=== PATIENT | female | born 1960 | race Caucasian/White ===

== ENCOUNTER → 2017-12-06 | Outpatient (CLI) | payer BC ==
--- NOTE | 2017-12-10 08:32 | RADIOLOGY IMAGING REPORT ---
FACILITY: [facility] PATIENT NAME: LYNNETTE KHAN : [id number] MR: [id number] V: [id number] EXAM DATE: ORDERING PHYSICIAN: SHELIA VICTOR TECHNOLOGIST: Geneva Carnes PROCEDURE:BILATERAL DIGITAL SCREENING MAMMOGRAM WITH CAD ASSISTED INTERPRETATION & 3D TOMOSYNTHESIS COMPARISON:Prior mammograms 09/07/15, 01/19/14, 01/15/14, 09/06/11. INDICATIONS:SCREENING FINDINGS: Mildly heterogeneous fibroglandular tissue is seen throughout the breasts. The parenchymal pattern has remained stable allowing for difference in mammographic technique & patient positioning. There is no evidence of malignant appearing mass, malignant appearing calcifications or other secondary sign of malignancy in either breast. DIAGNOSTIC CATEGORY 1--NEGATIVE. RECOMMENDATIONS: ROUTINE MAMMOGRAM AND CLINICAL EVALUATION. IMPRESSION: BIRADS 1: Negative. No significant abnormality is seen. Dictated by: Rasheeda Pimentel M.D. on 12/09/2017 at 15:12 Transcribed by: JONN on 12/09/2017 at 15:31 Approved by: Rasheeda Pimentel M.D. on 12/10/2017 at 8:32 [facility]
== END ==
LOC: MAMO 01:02
PROVIDERS: ATTEND Obstetrics & Gynecology
DX: Z12.31 Encounter for screening mammogram for malignant neoplasm of breast (principal)
CPT/HCPCS: 77063; 77067

== ENCOUNTER → 2019-02-17 | Outpatient (CLI) | payer BC ==
--- NOTE | 2019-02-17 15:16 | RADIOLOGY IMAGING REPORT ---
FACILITY: PATIENT NAME: LYNNETTE KHAN : [id number] MR: [id number] V: [id number] EXAM DATE: ORDERING PHYSICIAN: ANIYA CHAND TECHNOLOGIST: Desi Harper PROCEDURE: BILATERAL DIGITAL SCREENING MAMMOGRAM WITH CAD ASSISTED INTERPRETATION & 3D TOMOSYNTHESIS REASON FOR STUDY: Screening. FAMILY HISTORY OF BREAST CANCER: None. BREAST PROCEDURES/TREATMENTS: None. COMPARISON: 12/06/17, 09/07/15, 01/19/14, 01/15/14. VIEWS OBTAINED: Bilateral 2D & 3D full field CC & MLO projections. BREAST DENSITY: The breasts are heterogeneously dense which can obscure small masses. MAMMOGRAM FINDINGS: The parenchymal pattern has remained stable allowing for difference in mammographic technique & patient positioning. IMPRESSION: BIRADS 1: Negative. DIAGNOSTIC CATEGORY 1--NEGATIVE. RECOMMENDATIONS: ROUTINE MAMMOGRAM AND CLINICAL EVALUATION. Dictated by: Rasheeda Pimentel M.D. on 02/17/2019 at 14:26 Transcribed by: JONN on 02/17/2019 at 14:31 Approved by: Rasheeda Pimentel M.D. on 02/17/2019 at 15:10 [facility]
== END ==
LOC: MAMO 00:44
PROVIDERS: ATTEND Nurse Practitioner Psychiatric/Mental Health
DX: Z12.31 Encounter for screening mammogram for malignant neoplasm of breast (principal)
CPT/HCPCS: 77063; 77067